=== PATIENT | male | born 1965 | race Caucasian/White ===

== ENCOUNTER 2017-03-18 01:37 | Emergency (ER) | payer OTHER ==
[~2017-03-18] VITALS: Ht 162.6 cm; Wt 73.0 kg
[2017-03-18] MEDS ORDERED: LIDOCAINE 1%, 20ML SQ ONE (02:00)
[2017-03-18] MEDS ORDERED: DIPH,PERTUSS(ACELL),TET VAC/PF 0.5 ML IM-VACC ONE ×2 (02:00→02:04)
[2017-03-18] MEDS ORDERED: LIDOCAINE 1%, 20ML ONE (02:04)
[2017-03-18] MEDS ORDERED: BACITRACIN ZINC OINT 500U/GM, 0.9 GM ONE (03:44)
[2017-03-18 03:58] VITALS: BP 149/82
== END 2017-03-18 03:59 | disposition home or self-care (01) ==
LOC: ED 03:53
DX: S01.312A Laceration without foreign body of left ear, initial encounter (principal); R07.81 Pleurodynia; W06.XXXA Fall from bed, initial encounter; Y93.89 Activity, other specified; Y92.89 Other specified places as the place of occurrence of the external cause; Y99.8 Other external cause status
CPT/HCPCS: 12013; 99284